=== PATIENT | female | born 1990 | race Caucasian/White ===

== ENCOUNTER 2020-08-19 20:42 | Day surgery (SDCO) | payer OTHER ==
[~2020-08-19] VITALS: Ht 162.6 cm; Wt 70.0 kg
[2020-08-19 22:06] LABS: BASOPHIL 0.5 % (0-2); EOSINOPHIL 0.1 % (0-5); HCT 42.1 % (37.0-47.0); HGB 14.1 g/dl (12.5-16.0); LYMPHOCYTE 4.8 % (15-48); MCH 29.5 pg (25.0-31.0); MCHC 33.5 g/dL (32.0-36.0); MCV 88.1 fL (78.0-100.0); MONOCYTE 6.5 % (0-12); NEUTROPHIL 87.8 % (41-80); NRBC 0; PLT 257 K/uL (150-400); RBC 4.78 M/uL (4.20-5.40); WBC 17.1 K/uL (4.0-10.5)
[2020-08-19 22:09] LABS: BILIRUBIN NEGATIVE (NEGATIVE); BLOOD TRACE-INTACT Ery/uL (NEGATIVE); CLARITY SLIGHTLY HAZY (CLEAR); COLOR YELLOW (YELLOW); GLUCOSE (U) NORMAL (NORMAL); LEUKOCYTES TRACE Leu/uL (NEGATIVE); NITRITE NEGATIVE (NEGATIVE); PROTEIN NEGATIVE (NEGATIVE); SPECIFIC GRAVITY >=1.030 (1.001-1.030); UROBILINOGEN 0.2 mg/dL (0.2-1.0)
[2020-08-19 22:14] LABS: BACTERIA 1+; URINARY RBC RARE
[2020-08-19 22:24] LABS: ALBUMIN 4.5 g/dL (3.4-5.0); BILIRUBIN - TOTAL 0.5 mg/dL (0.2-1.0); BUN/CREAT RATIO (CALC) 12.2 RATIO; CREATININE 0.74 mg/dL (0.51-0.95); GLOBULIN (CALCULATION) 4.5 g/dL
[2020-08-19 22:30] LABS: LACTIC ACID 1.6 mmol/L (0.4-1.9)
[2020-08-19 23:11] LABS: CORONAVIRUS 2019 SARS-COV-2 NEGATIVE (NEGATIVE); INFLUENZA A NAA NEGATIVE (NEGATIVE)
--- NOTE | 2020-08-20 02:22 | NUR ---
0120 PT ADMITTED FROM ED VIA STRETCHER. ORIENTED PT AND FAMILY TO ROOM AND CALL LIGHT.
[2020-08-20 06:08] LABS: BASOPHIL 0.1 % (0-2); EOSINOPHIL 0.1 % (0-5); HCT 36.7 % (37.0-47.0); LYMPHOCYTE 7.4 % (15-48); MCH 29.6 pg (25.0-31.0); MCHC 32.7 g/dL (32.0-36.0); MCV 90.4 fL (78.0-100.0); MONOCYTE 5.7 % (0-12); MPV 11.2 fL (6.0-9.5); NEUTROPHIL 86.3 % (41-80); NRBC 0; PLT 221 K/uL (150-400); RBC 4.06 M/uL (4.20-5.40); WBC 14.5 K/uL (4.0-10.5)
[2020-08-20 06:34] LABS: INR 1.12 (0.9-1.2); PROTHROMBIN TIME 13.7 SECONDS (11.4-13.6); PTT 32.2 SECONDS (22.2-34.7)
[2020-08-20 06:47] LABS: BUN/CREAT RATIO (CALC) 12.1 RATIO; CREATININE 0.66 mg/dL (0.51-0.95); POTASSIUM 3.8 mmol/L (3.5-5.1)
[2020-08-20] MEDS ORDERED: NORCO 5-325 TA1 EACH PO (12:06)
[2020-08-20] MEDS ORDERED: ONDANSETRON ODT4 MG PO (12:06)
== END 2020-08-20 14:22 | disposition home or self-care (01) ==
LOC: FER 20:42 → FMS 08-20 00:30
PROVIDERS: Emergency Medicine Emergency Medical Services; Nurse Practitioner; ADMIT Internal Medicine
DX: K35.30 Acute appendicitis with localized peritonitis, without perforation or gangrene (principal); E28.2 Polycystic ovarian syndrome; Z20.822 Contact with and (suspected) exposure to COVID-19
CPT/HCPCS: 36415; 80048; 80053; 81001; 83605; 85025; 85610; 85730; 87040; 87088; 94010; G0378; J1100; J1170; J1644; J1885; J2250; J2405; J2543; J2704; J2710; J3010; J7030; J7120; Q9967; U0002